=== PATIENT | female | born 1990 | race Two or more races ===

== ENCOUNTER 2021-09-18 08:05 | Emergency (ER) | payer OTHER ==
[~2021-09-18] VITALS: Ht 162.6 cm; Wt 113.4 kg
== END 2021-09-18 10:19 | disposition home or self-care (01) ==
LOC: ER 08:05
DX: R06.02 Shortness of breath (principal)

== ENCOUNTER 2021-11-23 04:07 | Emergency (ER) | payer OTHER ==
[~2021-11-23] VITALS: Ht 149.9 cm; Wt 91.6 kg
== END 2021-11-23 04:47 | disposition home or self-care (01) ==
LOC: ER 04:07
DX: S05.11XA Contusion of eyeball and orbital tissues, right eye, initial encounter (principal); X58.XXXA Exposure to other specified factors, initial encounter; Y93.9 Activity, unspecified; Y92.9 Unspecified place or not applicable

== ENCOUNTER 2022-02-24 16:56 | Emergency (ER) | payer OTHER ==
[~2022-02-24] VITALS: Ht 149.9 cm; Wt 92.1 kg
== END 2022-02-24 23:08 | disposition home or self-care (01) ==
LOC: ER 16:56
DX: R10.2 Pelvic and perineal pain (principal)

== ENCOUNTER 2023-11-22 11:41 | Emergency (ER) | payer OTHER ==
[~2023-11-22] VITALS: Ht 149.9 cm; Wt 94.8 kg
[2023-11-22] MEDS ORDERED: IPRATROPIUM BROMIDE 0.5 MG/2.5 ML AMPUL.NEB IH STA (14:55)
[2023-11-22] MEDS ORDERED: GUAIFENESIN 200 MG/10 ML BLIST.PACK PO STA (14:55)
[2023-11-22] MEDS ORDERED: BUDESONIDE 0.5 MG/2 ML AMPUL.NEB IH STA (14:55)
[2023-11-22 16:05] LABS: HEMATOCRIT 37.6 % (36.0-45.00); HEMOGLOBIN 12.6 g/dL (12.0-15.00); MEAN CELL VOLUME 76.5 fL (80.00-100.00); MEAN CORPUSCULAR HEMOGLOBIN 25.6 pg (27.00-32.0); MEAN CORPUSCULAR HGB CONC 33.5 g/dl (32.0-36.0); PLATELET COUNT 371 K/uL (150-450); RED BLOOD COUNT 4.92 M/uL (4.00-6.00); RED CELL DISTRIBUTION WIDTH 15.9 % (11.5-14.5)
[2023-11-22 16:42] LABS: CALCIUM 9.4 mg/dL (8.5-10.1); CREATININE SERUM 0.52 mg/dL (0.55-1.02); GFR 137.54; POTASSIUM 4.29 mEq/L (3.5-5.1)
[2023-11-22] MEDS ORDERED: IPRATROPIUM BROMIDE 0.5 MG/2.5 ML AMPUL.NEB IH SCH (19:30)
[2023-11-22] MEDS ORDERED: ALBUTEROL SULFATE 3 ML/2.5 MG AMPUL.NEB IH SCH (19:30)
[2023-11-22] MEDS ORDERED: METHYLPREDNISOLONE SOD SUCC 125 MG VIAL IV ONE (19:30)
== END 2023-11-22 23:56 | disposition home or self-care (01) ==
LOC: ER 11:41
PROVIDERS: General Practice
DX: J11.1 Influenza due to unidentified influenza virus with other respiratory manifestations (principal); J45.998 Other asthma; Z20.822 Contact with and (suspected) exposure to COVID-19

== ENCOUNTER 2024-05-28 18:37 | Emergency (ER) | payer OTHER ==
[~2024-05-28] VITALS: Ht 149.9 cm; Wt 98.9 kg
[2024-05-28 19:13] LABS: HEMOGLOBIN 11.7 g/dL (12.0-15.00); MEAN CELL VOLUME 80.5 fL (80.00-100.00); MEAN CORPUSCULAR HEMOGLOBIN 26.9 pg (27.00-32.0); MEAN CORPUSCULAR HGB CONC 33.4 g/dl (32.0-36.0); PLATELET COUNT 365 K/uL (150-450); RED BLOOD COUNT 4.35 M/uL (4.00-6.00); RED CELL DISTRIBUTION WIDTH 14.6 % (11.5-14.5)
[2024-05-28 19:50] LABS: INR 0.96; PARTIAL THROMBOPLASTIN TIME 27.3 SECONDS (22.0-34.0); PROTHROMBIN TIME 10.5 SECONDS (9.0-11.5)
[2024-05-28 19:57] LABS: ALBUMIN 3.9 gm/dL (3.4-5.0); ALKALINE PHOSPHATASE 109 U/L (50-136); ALT/SGPT 76 U/L (12-78); ANION GAP 11 (10.0-20.0); AST/SGOT 46 U/L (15-37); BILIRUBIN TOTAL 0.27 mg/dL (0.3-1.2); BLOOD UREA NITROGEN 13 mg/dL (7-18); BUN CREA RATIO 17 (7.0-25.0); CARBON DIOXIDE 27 mEq/L (21-32); CHLORIDE 106 mmol/L (98-107); CREATININE SERUM 0.76 mg/dL (0.55-1.02); GFR 88.76; GLOBULINA 3.6 G/DL (2.4-3.5); GLUCOSE FASTING 143 mg/dL (65-100); OSMOLALITY SERUM 282 MOSM/KG (275-295); POTASSIUM 3.87 mEq/L (3.5-5.1); SODIUM 140 mmol/L (136-145); TOTAL PROTEIN 7.5 gm/dL (6.4-8.2)
[2024-05-28 20:43] LABS: HCG QUANTITATIVE < 1 mUI/mL (1-3)
[2024-05-28 21:05] LABS: PH,URINE 6.5 (5.0-8.0); URINE APPEARANCE Cloudy; URINE BILIRRUBIN Negative (NEGATIVE); URINE BLOOD Large; URINE COLOR Orange; URINE GLUCOSE Negative (NEGATIVE); URINE KETONE Negative (NEGATIVE); URINE LEUKOCYTE Trace; URINE NITRATE Negative; URINE PROTEIN Trace (NEGATIVE); URINE UROBILINOGEN 0.2 E.U./dl
[2024-05-28 21:06] LABS: URINE BACTERIA 86.9 uL (0.0-1933); URINE EPITHELIAL CELLS 2.4 uL (0.0-38.8); URINE RBC 7748.6 uL (0.0-20.8); URINE WBC 25.1 uL (0.0-23.2)
[2024-05-28] MEDS ORDERED: KETOROLAC TROMETHAMINE 30 MG VIAL IM ONE (22:45)
== END 2024-05-28 22:52 | disposition home or self-care (01) ==
LOC: ER 18:38
PROVIDERS: General Practice
DX: N94.6 Dysmenorrhea, unspecified (principal); E28.2 Polycystic ovarian syndrome; N93.8 Other specified abnormal uterine and vaginal bleeding

== ENCOUNTER 2024-09-03 16:06 | Emergency (ER) | payer OTHER ==
[~2024-09-03] VITALS: Ht 149.9 cm; Wt 93.9 kg
[2024-09-03] MEDS ORDERED: MORPHINE SULFATE 4 MG/ML CARTRIDGE IV ONE (18:45)
[2024-09-03] MEDS ORDERED: 0.9 % SODIUM CHLORIDE 1,000 ML IV SCH (19:00)
[2024-09-03 19:38] LABS: HEMATOCRIT 39.7 % (36.0-45.00); HEMOGLOBIN 12.8 g/dL (12.0-15.00); MEAN CELL VOLUME 79.1 fL (80.00-100.00); MEAN CORPUSCULAR HEMOGLOBIN 25.5 pg (27.00-32.0); MEAN CORPUSCULAR HGB CONC 32.2 g/dl (32.0-36.0); PLATELET COUNT 301 K/uL (150-450); RED BLOOD COUNT 5.02 M/uL (4.00-6.00); RED CELL DISTRIBUTION WIDTH 15.2 % (11.5-14.5)
[2024-09-03 19:39] LABS: URINE APPEARANCE Cloudy; URINE BILIRRUBIN Negative (NEGATIVE); URINE BLOOD Large; URINE COLOR Yellow; URINE KETONE Negative (NEGATIVE); URINE LEUKOCYTE Moderate; URINE NITRATE Positive; URINE PROTEIN Trace (NEGATIVE); URINE UROBILINOGEN 0.2 E.U./dl
[2024-09-03 19:42] LABS: URINE WBC 445.7 uL (0.0-23.2)
[2024-09-03 19:50] LABS: URINE BACTERIA > 9821.5 uL (0.0-1933); URINE CAST 0.14 uL (0.0-1.40); URINE GLUCOSE 250 MG/DL (NEGATIVE)
[2024-09-03 20:09] LABS: CALCIUM 9.2 mg/dL (8.5-10.1); CREATININE SERUM 0.83 mg/dL (0.55-1.02); GFR 80.18; POTASSIUM 3.75 mEq/L (3.5-5.1)
[2024-09-04] MEDS ORDERED: CEFAZOLIN SODIUM 1,000 MG VIAL ONE (01:41)
[2024-09-04] MEDS ORDERED: ACETAMINOPHEN 500 MG GEL..CAP PO ONE (01:41)
== END 2024-09-04 01:55 | disposition home or self-care (01) ==
LOC: ER 16:09
PROVIDERS: Emergency Medicine
DX: N39.0 Urinary tract infection, site not specified (principal); R10.9 Unspecified abdominal pain

== ENCOUNTER 2024-12-19 15:39 | Emergency (ER) | payer OTHER ==
[~2024-12-19] VITALS: Ht 149.9 cm; Wt 92.1 kg
[2024-12-19] MEDS ORDERED: ANTICONCEPTIVAS (15:58)
[2024-12-19] MEDS ORDERED: [UNRECOGNIZED DRUG - OTHER] (15:58)
[2024-12-19 15:59] VITALS: BP 134/77; O2SAT 99
[2024-12-19] MEDS ORDERED: METRONIDAZOLE/SODIUM CHLORIDE 500 MG/100 ML PIGGYBACK IV ONE ×2 (17:54→18:00)
[2024-12-19] MEDS ORDERED: BARIUM SULFATE 450 ML ORAL.SUSP PO ONE (17:55)
[2024-12-19 18:13] LABS: HEMATOCRIT 38.8 % (36.0-45.00); HEMOGLOBIN 13.2 g/dL (12.0-15.00); MEAN CELL VOLUME 80.5 fL (80.00-100.00); MEAN CORPUSCULAR HEMOGLOBIN 27.4 pg (27.00-32.0); MEAN CORPUSCULAR HGB CONC 34.1 g/dl (32.0-36.0); PLATELET COUNT 324 K/uL (150-450); RED BLOOD COUNT 4.81 M/uL (4.00-6.00); RED CELL DISTRIBUTION WIDTH 15.6 % (11.5-14.5)
[2024-12-19 18:35] LABS: INR 1.05; PARTIAL THROMBOPLASTIN TIME 28.7 SECONDS (22.0-34.0); PROTHROMBIN TIME 11.4 SECONDS (9.0-11.5)
[2024-12-19 18:40] LABS: ALBUMIN 3.9 gm/dL (3.4-5.0); BILIRUBIN TOTAL 0.68 mg/dL (0.3-1.2); CALCIUM 9.2 mg/dL (8.5-10.1); CREATININE SERUM 0.54 mg/dL (0.55-1.02); GFR 130.83; GLOBULINA 3.3 G/DL (2.4-3.5); POTASSIUM 3.58 mEq/L (3.5-5.1); TOTAL PROTEIN 7.2 gm/dL (6.4-8.2)
[2024-12-19 19:42] LABS: URINE APPEARANCE Clear; URINE BILIRRUBIN Negative (NEGATIVE); URINE BLOOD Negative; URINE COLOR Yellow; URINE GLUCOSE Negative (NEGATIVE); URINE KETONE 15 (NEGATIVE); URINE LEUKOCYTE Trace; URINE NITRATE Negative; URINE PROTEIN Negative (NEGATIVE); URINE UROBILINOGEN 0.2 E.U./dl
[2024-12-19 19:46] LABS: URINE BACTERIA 62.4 uL (0.0-1933); URINE EPITHELIAL CELLS 9.6 uL (0.0-38.8); URINE WBC 10.8 uL (0.0-23.2)
[2024-12-19 20:09] LABS: URINE CAST 0.14 uL (0.0-1.40); URINE RBC 1.1 uL (0.0-20.8)
[2024-12-19] MEDS ORDERED: BUTALB/ACETAMINOPHEN/CAFFEINE 1 TAB TABLET PO ONE ×2 (21:30→21:39)
== END 2024-12-20 00:41 | disposition home or self-care (01) ==
LOC: ER 15:40
PROVIDERS: Emergency Medicine
DX: K63.89 Other specified diseases of intestine (principal); R10.9 Unspecified abdominal pain
CPT/HCPCS: 36415; 74177; Q9965

== ENCOUNTER 2025-03-19 17:21 | Emergency (ER) | payer OTHER ==
[~2025-03-19] VITALS: Ht 149.9 cm; Wt 90.3 kg
[~2025-03-19 17:21] MED LIST: ANTICONCEPTIVAS; [UNRECOGNIZED DRUG - OTHER]
[2025-03-19] MEDS ORDERED: MOUNJARO2.5 MG/0.5 SQ (17:26)
[2025-03-19] MEDS ORDERED: FAMOTIDINE/PF 20 MG/2 ML VIAL IV ONE (18:00)
[2025-03-19] MEDS ORDERED: 0.9 % SODIUM CHLORIDE 500 ML IV ONE (18:00)
[2025-03-19 18:58] LABS: BASO % 0.3 % (0.1-1.2); EOS # 0.14 (0.04-0.54); EOS % 1.3 % (0.7-7.0); LYMPH # 1.91 (1.18-3.74); LYMPH % 17.4 % (19.3-53.1); MEAN PLATELET VOLUME 9.10 fl (9.4-12.4); MONO # 0.49 (0.24-0.82); MONO % 4.5 % (4.7-12.5); NEUT # 8.38 (1.56-6.13); NEUT % 76.2 % (34.0-71.1); RED CELL DISTRIBUTION WIDTH 14.0 % (11.6-14.4)
[2025-03-19 19:27] LABS: ALT/SGPT 58.0 U/L (12-78); AST/SGOT 22.0 U/L (15-37); BILIRUBIN TOTAL 1.28 mg/dL (0.3-1.2); BUN CREA RATIO 11.0 (7.0-25.0); CREATININE SERUM 0.56 mg/dL (0.55-1.02); GFR 125.45; GLOBULINA 3.8 G/DL (2.4-3.5); GLUCOSE FASTING 85.0 mg/dL (65-100); OSMOLALITY SERUM 278.0 MOSM/KG (275-295)
[2025-03-19 20:32] LABS: URINE APPEARANCE Clear; URINE BILIRRUBIN Negative (NEGATIVE); URINE BLOOD Large; URINE COLOR Orange; URINE GLUCOSE Negative (NEGATIVE); URINE KETONE 15 (NEGATIVE); URINE LEUKOCYTE Small; URINE NITRATE Negative; URINE PROTEIN Trace (NEGATIVE); URINE UROBILINOGEN 0.2 E.U./dl
[2025-03-19 20:36] LABS: URINE BACTERIA 769.1 uL (0.0-1933); URINE CAST 0.00 uL (0.0-1.40); URINE EPITHELIAL CELLS 7.6 uL (0.0-38.8); URINE RBC 4526.4 uL (0.0-20.8); URINE WBC 43.9 uL (0.0-23.2)
[2025-03-19] MEDS ORDERED: PIPERACILLIN/TAZOBACTAM SODIUM 3.375 GM VIAL IV ONE (20:45)
[2025-03-19] MEDS ORDERED: KETOROLAC TROMETHAMINE 30 MG VIAL IV ONE (20:45)
[2025-03-19] MEDS ORDERED: INTESTINEX680 M1 PO (20:49)
[2025-03-19] MEDS ORDERED: PERCOGESIC EXT1 EACH PO (20:49)
[2025-03-19] MEDS ORDERED: CIPRO500 MG PO (20:49)
[2025-03-19] MEDS ORDERED: METRONIDAZOLE500 MG PO (20:49)
[2025-03-19] MEDS ORDERED: PEPCID AC20 MG PO (20:49)
== END 2025-03-19 23:08 | disposition home or self-care (01) ==
LOC: ER 17:21
PROVIDERS: General Practice
DX: K57.92 Diverticulitis of intestine, part unspecified, without perforation or abscess without bleeding (principal); R10.32 Left lower quadrant pain; R10.9 Unspecified abdominal pain; E11.9 Type 2 diabetes mellitus without complications
CPT/HCPCS: 36415; 74177; Q9965